=== PATIENT | female | born 2005 | race Caucasian/White ===

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

== ENCOUNTER 2025-04-07 06:55 | Day surgery (SDC) | payer BC ==
[~2025-04-07 06:55] MED LIST: Bupivacaine 0.25%/EPINEPHrine 1:200,000 10 ML SDV ONE
[2025-04-07] MEDS: Lactated Ringers 1,000 ML IV SCH (07:32)
[2025-04-07] MEDS ORDERED: Bupivacaine 0.25%/EPINEPHrine 1:200,000 10 ML SDV INJECT ONE (08:00)
== END 2025-04-07 08:00 | disposition home or self-care (01) ==
LOC: CC.SDS 06:55
PROVIDERS: ATTEND Otolaryngology
DX: J35.2 Hypertrophy of adenoids (principal); E10.9 Type 1 diabetes mellitus without complications; Z88.8 Allergy status to other drugs, medicaments and biological substances; Z53.8 Procedure and treatment not carried out for other reasons; Z79.899 Other long term (current) drug therapy
CPT/HCPCS: 81025; A9270-GY; J7120

== ENCOUNTER 2025-04-17 12:15 | Observation (INO) | payer BC ==
[2025-04-17 12:44] LABS: BASOPHILS ABSOLUTE AUTO 0.02 10^3/uL (0.00-0.50); BASOPHILS PERCENT AUTO 0.2 % (0-1); EOSINOPHILS ABSOLUTE AUTO 0.14 10^3/uL (0.00-1.50); EOSINOPHILS PERCENT AUTO 1.6 % (0-6); IMMATURE GRAN ABSOLUTE AUTO 0.03 10^3/uL (0.00-0.49); IMMATURE GRAN PERCENT AUTO 0.3 % (0.0-4.9); LYMPHOCYTES ABSOLUTE AUTO 1.88 10^3/uL (0.60-5.00); LYMPHOCYTES PERCENT AUTO 21.3 % (24-44); MONOCYTES ABSOLUTE AUTO 0.70 10^3/uL (0.00-1.50); MONOCYTES PERCENT AUTO 7.9 % (0-10); NEUTROPHILS ABSOLUTE AUTO 6.05 x10^3/uL (1.80-8.00); NEUTROPHILS PERCENT AUTO 68.7 % (41-71); PLATELET COUNT,PLT 326 10^3/uL (150-400); RED BLOOD CELL COUNT 4.61 x10^6/uL (4.00-5.50); WHITE BLOOD CELL COUNT,WBC 8.8 10^3/uL (4.0-11.0)
[2025-04-17 13:08] LABS: ALANINE AMINOTRANSFERASE,ALT 25 U/L (12-78); ASPARTATE AMNIOTRANSFERASE,AST 12 U/L (15-37); BILIRUBIN TOTAL 0.6 mg/dL (0.0-1.0); BLOOD UREA NITROGEN,BUN 12 mg/dL (7-18); CARBON DIOXIDE,CO2 26 mmol/L (21-32); CHLORIDE,CL 99 mEq/L (98-106); CREATININE 0.7 mg/dL (0.6-1.0); EST CRCL DRUG DOSING (CG) 119.01 mL/min; ESTIMATED GFR 126 mL/min (>=60); GLUCOSE RANDOM 131 mg/dL (75-99); POTASSIUM,K 3.8 mEq/L (3.5-5.0); PROTEIN TOTAL,TP 7.5 g/dL (6.4-8.2); SODIUM,NA 136 mEq/L (136-145)
[2025-04-17] MEDS ORDERED: Ondansetron 4 MG Tab.DIS PO PRN (16:20)
[2025-04-17] MEDS ORDERED: Ondansetron 4 MG/2 ML SDV IV PRN (16:20)
[2025-04-17] MEDS ORDERED: 50% Dextrose in Water 50 ML Syringe IVPUSH PRN (18:27)
[2025-04-17] MEDS: oxyCODONE 5 MG/5 ML Cup PO PRN (21:12)
[2025-04-18 07:42] LABS: BASOPHILS ABSOLUTE AUTO 0.01 10^3/uL (0.00-0.50); BASOPHILS PERCENT AUTO 0.1 % (0-1); EOSINOPHILS ABSOLUTE AUTO 0.04 10^3/uL (0.00-1.50); EOSINOPHILS PERCENT AUTO 0.4 % (0-6); IMMATURE GRAN ABSOLUTE AUTO 0.04 10^3/uL (0.00-0.49); IMMATURE GRAN PERCENT AUTO 0.4 % (0.0-4.9); LYMPHOCYTES ABSOLUTE AUTO 2.32 10^3/uL (0.60-5.00); LYMPHOCYTES PERCENT AUTO 20.9 % (24-44); MONOCYTES ABSOLUTE AUTO 0.99 10^3/uL (0.00-1.50); MONOCYTES PERCENT AUTO 8.9 % (0-10); NEUTROPHILS ABSOLUTE AUTO 7.72 x10^3/uL (1.80-8.00); NEUTROPHILS PERCENT AUTO 69.3 % (41-71); PLATELET COUNT,PLT 350 10^3/uL (150-400); RED BLOOD CELL COUNT 4.19 x10^6/uL (4.00-5.50); WHITE BLOOD CELL COUNT,WBC 11.1 10^3/uL (4.0-11.0)
[2025-04-18 07:48] LABS: BLOOD UREA NITROGEN,BUN 7.0 mg/dL (7-18); CARBON DIOXIDE,CO2 26.0 mmol/L (21-32); CHLORIDE,CL 104.0 mEq/L (98-106); CREATININE 0.6 mg/dL (0.6-1.0); EST CRCL DRUG DOSING (CG) 138.85 mL/min; GLUCOSE RANDOM 124.0 mg/dL (75-99); POTASSIUM,K 3.7 mEq/L (3.5-5.0); SODIUM,NA 138.0 mEq/L (136-145)
[2025-04-18 07:49] LABS: ESTIMATED GFR 131.0 mL/min (>=60)
[2025-04-18] MEDS: Ketorolac 30 MG/ML SDV IVPUSH ONE (10:29)
[2025-04-18 12:31] VITALS: BP 121/65; PULSE 87
== END 2025-04-18 13:10 | disposition home or self-care (01) ==
LOC: CC.ED 12:15 → UNDOADMOB 14:59 → CC.MS 14:59
PROVIDERS: ADMIT Nurse Practitioner; ATTEND Nurse Practitioner
DX: J95.830 Postprocedural hemorrhage of a respiratory system organ or structure following a respiratory system procedure (principal); E86.0 Dehydration; Z79.4 Long term (current) use of insulin; Z79.899 Other long term (current) drug therapy
CPT/HCPCS: 36415; 71045; 80048; 80053; 83605; 83735; 84484; 85025; 85730; 86850; 86900; 86901; 87040; 93005; 93010; 96360; 96361; 96374; 96375; 96376; 99223; 99238; 99284-25; A9270-GY; G0378; J0696; J1885; J2270; J7030; J7512